=== PATIENT | male | born 1940 | race Caucasian/White ===

== ENCOUNTER → 2016-07-22 | Outpatient (CLI) | payer OTHER, BC ==
[~2016-07-22] MED LIST: ALBUAER19 INH; AMLO-110 PO; ASCO500T16 PO; CHOL100010 PO; FINA5TAB PO; FLUT0.15 NAE; FOLI1TAB7 PO; FURO-85 PO; GARL400T4 PO; LEVO125T72 PO; OMEG12006 PO; OXGN; PRLSR20 PO; PSYL55.43 PO; VITA100C4 PO
[2016-07-22 13:00] VITALS: BP 135/81; PULSE 92; TEMP 36.6; O2SAT 94
--- NOTE | 2016-07-22 15:17 | Radiation Oncology Follow-Up ---
Radiation Oncology Follow-Up Date of Visit Jul 22, 2016. (Frida Lezama PA-C) Reason For Visit Annual follow-up (Frida Lezama PA-C) Radiation Completion Date 12/14/14 (Frida Lezama PA-C) Diagnosis (1) Lung cancer Status: Acute Onset Date: 10/09/2014 Histology Subtype: squamous cell carcinoma Stage: lll (A) Permanent Comment: Lung, mediastinum, SCC, [id number], stage IIIA Shortness of breath and cough beginning August 2014 Abnormal chest x-ray consolidation left lower lobe 09/21/2014 CT revealing mediastinal mass 10/04/2014 PET/CT clinical [id number] 10/09/2014 bronchoscopy and biopsy revealing squamous cell carcinoma, placement of bronchial stent Status post completion of combined radiation and chemotherapy 12/14/2014 received 6000 cGy Maintenance Opdivo Last Edited By: Frida Lezama on Jul 22, 2016 15:07 ( Frida Lezama PA-C) History of Present Illness Mr. Leija is a 74 year-old gentleman who initially presented with increased shortness of breath in August 2014 and had chest x-rays which showed a left lower lobe consolidation concerning for pneumonia. Dr. vogel of this finding on radiographic imaging the patient was sent for CT thorax on 09/21/2014 which showed a right paratracheal lymph node measuring 2.9 cm and a soft tissue mass in the mediastinum measuring 5.8 cm and a 1.8 cm right hilar lymph node. Also noted on the scan was narrowing of the left mainstem bronchus. The patient was subsequently referred to have a PET/CT scan on 10/04/2014 completed which showed a hypermetabolic mediastinal mass measuring 7 cm in greatest dimension with maximal SUV uptake of 27.3. The patient then subsequently underwent a bronchoscopy on 10/09/2014 which revealed squamous cell carcinoma after biopsy of the left paratracheal mass. At the same time a stent was placed in the left mainstem bronchus. Dr. Roe's bronchoscopy report states that there was an endobronchial mass in the left mainstem bronchus with minimal bleeding. The patient was referred to Dr. Ralph Benson who discussed definitive chemoradiation therapy. We are now seeing the patient in consultation for radiation therapy. Currently the patient states that he is having significant shortness of breath. In comparison to several months ago, he states he did not require any supplemental oxygen as opposed to now. He has minimal hemoptysis. Denies he denies any fevers or night sweats or chills. He has had about a 12 pound weight loss. He has no pain at this point. Denies any headaches or focal neurologic deficits. He didn't have an MRI of the brain completed in June 2014 which did not show any evidence of metastatic disease. He completed his combined radiation and chemotherapy. Treatment he did have some difficulty with shortness of breath and cough he had a bronchoscopy 11/22/[address] Cartwright. The bronchial stent was removed after which he felt markedly improved. He had some radiation esophagitis that was treated and resolved without difficulty. (Frida Lezama PA-C) Interim History He's been doing well over this past year. He denies any changes of respiratory status. He continues to have chronic cough which is mildly productive. This is unchanged from previous. His pulse oximetry is stable. He has a home pulse oximeter and checks his level on a regular basis. He uses his oxygen continuously. He is followed closely by Dr. Benson in medical oncology. He stated the past 3 PET CTs have shown no recurrence. He is on maintenance therapy with Opdivo. He states that he tolerates this well and has minimal side effects. He is due for his next PET/CT on 08/20/2016. He is being followed for an abdominal aortic aneurysm. There has been discussion of her repair. He stated that this cannot be performed until he has improved kidney function. He is following with a telephone engineer. (Frida Lezama PA-C) Allergies Coded Allergies: Flu Virus Vaccine (Verified Allergy, Severe, DELIRIUM, 06/08/15) Home Medications Scheduled Amlodipine (Norvasc), 5 MG PO DAILY Finasteride (Proscar), 1 TAB PO DAILY Fluticasone Propionate (Nasal) (Flonase Allergy Relief), 2 SPRAYS MAGGIE DAILY Furosemide (Lasix), 1 TAB PO Q2D Home O2 Therapy (Oxygen), 2 LITERS NA HS Levothyroxine Sodium (Synthroid), 1 TAB PO DAILY Scheduled PRN Albuterol Inhaler (Ventolin Inhaler), 2 PUFFS INH QID PRN for Wheezing Omeprazole (Prilosec), 20 MG PO DAILY PRN for Dyspepsia Review of Systems Gastrointestinal: Symptoms: Diarrhea GI Comments: Relates this to receiving his opdivo; Oral: Symptoms: No Problems Respiratory: Symptoms: Dry Cough, Moist Cough, SOB With Exertion, Productive Cough Sputum Character: Clear sputum when productive;moist sounding otherwise; thick Other Respiratory: Oxygen on at 2l/min via nasal cannula Urinary: Symptoms: Frequency Comments: Related to PO hydration Skin: Symptoms: No Problems (Frida Lezama PA-C) Physical Exam Vital Signs Date Time Temp Pulse Resp B/P (MAP) Pulse Ox O2 Delivery O2 Flow Rate FiO2 07/22/16 13:00 36.6 92 20 135/81 94 Fatigue: None General Appearance: no apparent distress Eyes: normal inspection ENT: normal ENT inspection, hearing grossly normal Neck: no adenopathy, thyroid normal Respiratory/Chest: lungs clear, no respiratory distress, no accessory muscle use Cardiovascular: regular rate, rhythm, no gallop, no murmur Abdomen: non tender, soft, no organomegaly Extremities: no pedal edema Neurologic/Psychiatric: no motor/sensory deficits, alert, normal mood/affect Skin: warm/dry (Frida Lezama PA-C) Additional Studies EXAM PET CT SKULL BASE TO MID THIGH - 05/21/2016 3:32 pm HISTORY Left lung cancer, status post chemoradiation therapy. Subsequent treatment strategy. DATE OF DICTATION:05/22/2016 COMPARISON PET/CT 02/27/2016 and priors. TECHNIQUE Following the intravenous administration of approximately 7.0 mCi of F18-FDG and the oral administration of Gastroview, PET/CT imaging was performed from the skull base to the mid thighs 68 minutes following the radiotracer injection. The patient's glucose level at the time of radiotracer injection was 115 mg/dL. This is a follow up PET/CT for the above indication. FINDINGS Head / Neck: There is no suspicious hypermetabolic lesion in the neck. Calcified atherosclerotic plaque in bilateral carotid bulbs. Chest: Mild metabolic activity is identified in left posterolateral pleural thickening, max SUV 2.4, previously 2.9. No discrete hypermetabolic lymphadenopathy is identified in the chest. There is no pleural effusion. Mild left gynecomastia. Trace pericardial effusion. Coronary and aortic atherosclerosis. Moderate to severe paraseptal and centrilobular emphysema. Tiny calcified nodule in the right upper lobe. Mild subpleural scarring is noted bilaterally. Abdomen/pelvis: No hypermetabolic lesion is identified. No ascites, hydronephrosis or lymphadenopathy. Sequela of cholecystectomy. Diffuse atherosclerosis noted with 5.2 cm aneurysm of the distal aorta, unchanged. This contains small to moderate size intramural thrombus. Mild aneurysm dilation of bilateral common iliac arteries. Moderate size fat-containing umbilical hernia. Moderate right and small left fat-containing inguinal hernias. Prostate gland is mildly enlarged containing benign calcifications, and protrudes into the bladder. Sigmoid diverticulosis without diverticulitis. Musculoskeletal / Other: No suspicious hypermetabolic osseous lesion is noted. Mild metabolic activity in left sternoclavicular joint is again demonstrated, likely degenerative/ inflammatory in nature. Mild degenerative changes in the spine. IMPRESSION No definite evidence of recurrent/metastatic disease. Mild metabolic activity in left posterolateral pleural thickening, less intense compared to previous exams, likely reflecting sequela of treated metastatic disease or a resolving benign inflammatory process. (Frida Lezama PA-C) Assessment & Plan Patient was seen and examined by Dr. Benson. Continue follow-up with Dr. Benson in medical oncology. He'll have a recheck PET/CT 08/20/2016. We'll plan to review that when complete. We asked him to return to our office in 1 year. He may call if he has the questions or concerns in the interim. (Frida Lezama PA-C) I agree with note created by Frida Lezama PA-C. I reviewed the patient's chart and information with her. I have examined and evaluated the patient. I reviewed relevant clinical information and answered the patient's and/or family' s questions. (Veeral. Benosn MD) Total Time In Follow-Up I spent 20 minutes speaking to the patient and performing examination. I spent 15 minutes reviewing information and completing this note. (Frida Lezama PA-C) I spent 15 minutes examining and counseling the patient. (Veeral. Benson MD) Copy To Marlo Lee M.D.; Ralph Benson M.D. Problem Qualifiers (1) Lung cancer: Laterality: left Lung location: lower lobe of lung Qualified Codes: C34.32 - Malignant neoplasm of lower lobe, left bronchus or lung
== END | disposition home or self-care (01) ==
LOC: C.ONC 12:49
PROVIDERS: ATTEND Physician Assistant Medical
DX: Z08 Encounter for follow-up examination after completed treatment for malignant neoplasm (principal); Z92.3 Personal history of irradiation; Z85.118 Personal history of other malignant neoplasm of bronchus and lung